=== PATIENT | male | born 1935 | race Caucasian/White ===

== ENCOUNTER 2020-09-15 19:59 | Emergency (ER) | payer MEDICARE, OTHER ==
[~2020-09-15] VITALS: Ht 165.1 cm; Wt 61.2 kg
[2020-09-15 20:24] LABS: LYMPHOCYTES # (AUTO) 1.1 /CMM (0.8-4.8); MEAN CORPUSCULAR HGB CONC 33 g/dl (31.0-36.0); PLATELET COUNT (AUTO) 118 /CMM (150-450)
[2020-09-15 20:27] LABS: BASOPHILS # (AUTO) 0.1 /CMM (0.0-0.2); EOSINOPHILS % (AUTO) 2.3 % (0.0-6.0); HEMATOCRIT 41 % (39-51); HEMOGLOBIN 13.5 g/dL (13.5-17.5); LYMPHOCYTES % (AUTO) 17.5 % (20.0-44.0); MEAN CORPUSCULAR VOLUME 93 fL (80-96); MONOCYTES # (AUTO) 0.4 /CMM (0.1-1.30); MONOCYTES % (AUTO) 7.1 % (2.0-12.0); NEUTROPHILS # (AUTO) 4.5 /CMM (1.8-8.9); NEUTROPHILS % (AUTO) 72.1 % (43.0-81.0); RED BLOOD CELL COUNT(AUTO) 4.42 MIL/uL (4.5-6.0); WHITE BLOOD COUNT (AUTO) 6.2 K/uL (4.3-11.0)
--- NOTE | 2020-09-15 20:27 | NUR ---
KOFI FROM [facility] TO ER BED 6. AAOX3. NOT IN RESP DISTRESS, BREATHING EVEN AND UNLABORED. BROUGHT IN FOR A GROUND LEVEL FALL. PT IS CURRENTLY DENYING ANY PAIN. BODY CHECK DONE, NOTED A SKIN TEAR ON THE PT'S R HAND, NO OTHER NOTED INJURY. PT DOES NOT RECALL IF HE PASSED OUT PRIO NOR AFTER THE FALL. PT ALSO DOES NOT RECALL HITTING HIS HEAD, NO NOTED INJURY. ALL ROM ARE INTACT. MD WAS AT THE BEDSIDE FOR EVAL. ORDERS RECEIVED, NOTED AND CARRIED OUT. IV LINE ALREADY PRESENT ON LFA 20G. BLOOD DRAWN BY PHLEB AT BEDSIDE.
[2020-09-15 20:33] LABS: CALCIUM, SERUM 8.8 mg/dL (8.5-10.1); CARBON DIOXIDE 28 mmol/L (21-32); CHLORIDE 107 mmol/L (98-107); CREATININE 1.7 mg/dL (0.6-1.3); GLUCOSE 118 mg/dL (74-106); POTASSIUM 3.4 mmol/L (3.5-5.1); SODIUM SERUM 145 mmol/L (136-145); UREA NITROGEN, BLOOD 26 mg/dL (7-18)
--- NOTE | 2020-09-15 20:33 | NUR ---
PT TO CT
--- NOTE | 2020-09-15 20:34 | NUR ---
JACEY BERG CALLED, STATED THAT SHE HAS THE POWER OF PHYSICIAN/INTERNIST. ENQIREING ABOUT PROGRESS OF PT.
--- NOTE | 2020-09-15 20:39 | NUR ---
PT BACK FROM RADIOLOGY. PENDING CT REUSLT.
--- NOTE | 2020-09-15 21:39 | NUR ---
REPORT CALLED TO [facility] STAFF ANNETTE. WILL CALL FOR TRANSPORT.
--- NOTE | 2020-09-15 21:47 | NUR ---
[facility] CALLED FOR TRANSPORT ETA 45-60MIN.
--- NOTE | 2020-09-15 23:00 | NUR ---
[facility] TRANSPORT AT BEDSIDE REPORT GIVEN TO EMT.
--- NOTE | 2020-09-15 23:00 | NUR ---
IV removed. Catheter intact and site benign. Pressure and 4x4 applied to site. No bleeding noted.
[2020-09-15 23:11] VITALS: BP 122/68
== END 2020-09-15 23:16 ==
LOC: ER 20:01
DX: R55 Syncope and collapse (principal); R51.9 Headache, unspecified; F03.90 Unspecified dementia, unspecified severity, without behavioral disturbance, psychotic disturbance, mood disturbance, and anxiety; I10 Essential (primary) hypertension; I25.10 Atherosclerotic heart disease of native coronary artery without angina pectoris; M19.90 Unspecified osteoarthritis, unspecified site; W01.0XXA Fall on same level from slipping, tripping and stumbling without subsequent striking against object, initial encounter; Y93.89 Activity, other specified; Y92.89 Other specified places as the place of occurrence of the external cause; Y99.8 Other external cause status
CPT/HCPCS: 36415; 70450-TC; 71045-TC; 72125-TC; 80048-TC; 83880; 84484-TC; 85025-TC

== ENCOUNTER 2021-04-20 11:07 | Emergency (ER) | payer MEDICARE, OTHER ==
[~2021-04-20] VITALS: Ht 175.3 cm; Wt 72.6 kg
--- NOTE | 2021-04-20 11:07 | NUR ---
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 PT IS AAOX3, NOT IN RESPIRATORU DISTRESS, HOOKED TO EXPLOSIVE EXPERT, KEPT RESTED AND COMFORTABLE. WILL CONTINUE TO MONITOR.
--- NOTE | 2021-04-20 11:10 | NUR ---
SEEN AND EXAMINED BY .
--- NOTE | 2021-04-20 11:14 | NUR ---
PT DAUGHTER [phone]
--- NOTE | 2021-04-20 11:26 | NUR ---
BLOOD DRAWN AND SENT TO LAB.
[2021-04-20 11:40] LABS: BASOPHILS # (AUTO) 0.1 K/uL (0.0-0.2); BASOPHILS % (AUTO) 0.9 % (0.0-2.0); EOSINOPHILS % (AUTO) 3.4 % (0.0-6.0); HEMATOCRIT 44 % (39-51); HEMOGLOBIN 14.5 g/dL (13.5-17.5); LYMPHOCYTES # (AUTO) 1.2 K/uL (0.8-4.8); MEAN CORPUSCULAR HGB CONC 33 g/dl (31.0-36.0); MEAN CORPUSCULAR VOLUME 92 fL (80-96); MONOCYTES # (AUTO) 0.5 K/uL (0.1-1.30); MONOCYTES % (AUTO) 7.3 % (2.0-12.0); NEUTROPHILS # (AUTO) 4.2 K/uL (1.8-8.9); NEUTROPHILS % (AUTO) 68.4 % (43.0-81.0); PLATELET COUNT (AUTO) 113 K/uL (150-450); RED BLOOD CELL COUNT(AUTO) 4.85 MIL/uL (4.5-6.0); WHITE BLOOD COUNT (AUTO) 6.2 K/uL (4.3-11.0)
--- NOTE | 2021-04-20 11:43 | NUR ---
LABORATORY TECHNOLOGY TEACHER AT BEDSIDE FOR XRAY.
--- NOTE | 2021-04-20 11:44 | NUR ---
AGRICULTURAL SCIENCES PROFESSOR NAME IS DR. HALL [phone]
[2021-04-20 11:49] LABS: CALCIUM, SERUM 9.3 mg/dL (8.5-10.1); CARBON DIOXIDE 30 mmol/L (21-32); CHLORIDE 108 mmol/L (98-107); CREATININE 1.5 mg/dL (0.6-1.3); GLUCOSE 89 mg/dL (74-106); POTASSIUM 3.9 mmol/L (3.5-5.1); SODIUM SERUM 147 mmol/L (136-145); UREA NITROGEN, BLOOD 23 mg/dL (7-18)
[2021-04-20 11:55] LABS: ALANINE AMINOTRANSFERASE 23 U/L (12-78); ALBUMIN 3.5 g/dL (3.4-5.0); ALKALINE PHOSPHATASE 91 U/L (46-116); ASPARTATE AMINOTRANSFERASE 21 U/L (15-37); BILIRUBIN,DIRECT 0.2 mg/dL (0.0-0.2); BILIRUBIN,TOTAL 0.6 mg/dL (0.2-1.0); TOTAL PROTEIN, SERUM 6.1 g/dL (6.4-8.2)
[2021-04-20] MEDS ORDERED: VALS1TAB2 PO (15:26)
[2021-04-20] MEDS ORDERED: QUET25TA PO ×2 (15:26)
[2021-04-20] MEDS ORDERED: EZET10TA32 PO (15:26)
[2021-04-20] MEDS ORDERED: ASPI-1169 PO (15:26)
[2021-04-20] MEDS ORDERED: FLUT16SP (15:26)
[2021-04-20] MEDS ORDERED: MEMA10TA56 PO (15:26)
[2021-04-20] MEDS ORDERED: SERT100T12 PO (15:26)
[2021-04-20] MEDS ORDERED: ROSU5TAB13 PO (15:26)
[2021-04-20] MEDS ORDERED: DONE10TA44 PO (15:26)
--- NOTE | 2021-04-20 15:40 | NUR ---
ANA ROSA BURDEN FROM [facility] WILL SEND CREW TO HOME APPRAISER THE PT.
[2021-04-20 15:56] VITALS: BP 131/58
--- NOTE | 2021-04-20 15:56 | NUR ---
IV removed. Catheter intact and site benign. Pressure and 4x4 applied to site. No bleeding noted. Patient discharged to home in stable condition. Written and verbal after care instructions given. Patient verbalizes understanding of instruction.
== END 2021-04-20 15:57 | disposition home or self-care (01) ==
LOC: ER 11:18 → MERGE 11:18 → ER 15:57
DX: R07.89 Other chest pain (principal); F03.90 Unspecified dementia, unspecified severity, without behavioral disturbance, psychotic disturbance, mood disturbance, and anxiety; I10 Essential (primary) hypertension; I25.10 Atherosclerotic heart disease of native coronary artery without angina pectoris; Z79.899 Other long term (current) drug therapy; Z79.82 Long term (current) use of aspirin
CPT/HCPCS: 36415; 71045-TC; 80048-TC; 80076-TC; 84484-TC; 85025-TC

== ENCOUNTER 2021-07-01 23:02 | Inpatient (IN) | payer MEDICARE, OTHER ==
[~2021-07-01] VITALS: Ht 172.7 cm; Wt 73.6 kg
[~2021-07-01 23:02] MED LIST: ASPI-1169 PO; DONE10TA44 PO; EZET10TA32 PO; FLUT16SP; MEMA10TA56 PO; QUET25TA PO; ROSU5TAB13 PO; SERT100T12 PO; VALS1TAB2 PO
[2021-07-01] MEDS ORDERED: VANCOMYCIN 1 GM in IV D5W 250 ML IV ONE (23:30)
[2021-07-01] MEDS ORDERED: ACETAMINOPHEN 650 MG/SUPP.RECT RC ONE ×2 (23:30→23:34)
[2021-07-01] MEDS ORDERED: LIDOCAINE 2% JEL UROJET 10 ML MM ONE (23:33)
[2021-07-01] MEDS ORDERED: VANCOMYCIN 1 GM VIAL ONE (23:34)
--- NOTE | 2021-07-01 23:40 | NUR ---
RFA #20G S/L; PATENT AND INTACT. BLOOD COLLECTED AND GIVEN TO LAB
[2021-07-01 23:52] LABS: BASOPHILS % (AUTO) 0.1 % (0.0-2.0); EOSINOPHILS % (AUTO) 0.8 % (0.0-6.0); HEMATOCRIT 44 % (39-51); HEMOGLOBIN 14.2 g/dL (13.5-17.5); LYMPHOCYTES # (AUTO) 0.2 K/uL (0.8-4.8); LYMPHOCYTES % (AUTO) 1.7 % (20.0-44.0); MEAN CORPUSCULAR HGB CONC 32 g/dl (31.0-36.0); MEAN CORPUSCULAR VOLUME 93 fL (80-96); MONOCYTES # (AUTO) 0.6 K/uL (0.1-1.30); MONOCYTES % (AUTO) 4.8 % (2.0-12.0); NEUTROPHILS # (AUTO) 12.2 K/uL (1.8-8.9); NEUTROPHILS % (AUTO) 92.6 % (43.0-81.0); PLATELET COUNT (AUTO) 172 K/uL (150-450); RED BLOOD CELL COUNT(AUTO) 4.77 MIL/uL (4.5-6.0); WHITE BLOOD COUNT (AUTO) 13.2 K/uL (4.3-11.0)
[2021-07-02 00:31] LABS: CALCIUM, SERUM 9.1 mg/dL (8.5-10.1); CARBON DIOXIDE 28 mmol/L (21-32); CHLORIDE 101 mmol/L (98-107); CREATININE 2.3 mg/dL (0.6-1.3); GLUCOSE 111 mg/dL (74-106); POTASSIUM 3.6 mmol/L (3.5-5.1); SODIUM SERUM 138 mmol/L (136-145); UREA NITROGEN, BLOOD 42 mg/dL (7-18)
[2021-07-02 00:40] LABS: ALANINE AMINOTRANSFERASE 21 U/L (12-78); ALBUMIN 3.3 g/dL (3.4-5.0); ALKALINE PHOSPHATASE 78 U/L (46-116); ASPARTATE AMINOTRANSFERASE 14 U/L (15-37); BILIRUBIN,DIRECT 0.4 mg/dL (0.0-0.2); BILIRUBIN,TOTAL 0.9 mg/dL (0.2-1.0); TOTAL PROTEIN, SERUM 6.9 g/dL (6.4-8.2)
[2021-07-02 00:44] LABS: BILIRUBIN,URINE NEGATIVE (NEGATIVE); COLOR,URINE YELLOW (YELLOW); LEUKOCYTE ESTERASE ,URINE NEGATIVE (NEGATIVE); NITRITE, URINE NEGATIVE (NEGATIVE); PH,URINE 5.5 (5.0-8.0); PROTEIN,URINE NEGATIVE (NEGATIVE); UGLUCOSE NEGATIVE (NEGATIVE); UROBILINOGEN,URINE 0.2 EU/dL (0.2)
[2021-07-02] MEDS ORDERED: PIPERACILLIN /TAZOBACTAM 3.375 G in IV D5W 50 ML IV ONE (01:00)
[2021-07-02] MEDS ORDERED: PIPERACILLIN /TAZOBACTAM 3.375 G VIAL IV ONE ×2 (01:14→12:50)
[2021-07-02] MEDS ORDERED: IV NS 0.9% 500 ML BAG IV ONE ×3 (03:00→17:00)
[2021-07-02] MEDS ORDERED: ZOLPIDEM TARTRATE 5 MG TABLET PO PRN (04:00)
[2021-07-02] MEDS ORDERED: MAGNESIUM HYDROXIDE 30 ML UDC PO PRN (04:00)
[2021-07-02] MEDS ORDERED: ONDANSETRON HCL/PF 4 MG/2 ML VIAL IVP PRN (04:00)
[2021-07-02] MEDS ORDERED: Z GUARD REMEDY 4 OZ OINT TP PRN (04:00)
[2021-07-02] MEDS ORDERED: MAG HYDROX/AL HYDROX/SIMETH 30 ML UDC PO PRN (04:00)
[2021-07-02] MEDS: IV 1/2NS 1000 ML 1,000 ML IV PRN ×2 (04:35→19:57)
[2021-07-02] MEDS: ZOSYN IVPB 2.25 G in IV D5W 50ml IV SCH ×2 (07:00→13:00)
--- NOTE | 2021-07-02 07:32 | NUR ---
RECEIVED REPORT FROM JENISE HO FOR [place]. PT IS AAOX1, NOT IN RESPIRATORY DISTRESS, V/S STABLE, KEPT RESTED AND COMFORTABLE. WILL CONTINUE TO MONITOR. AWAITING TRANSFER INFO
[2021-07-02] MEDS ORDERED: PANTOPRAZOLE 40 MG TABLET.DR PO ONE (07:52)
[2021-07-02] MEDS: PANTOPRAZOLE 40 MG TABLET.DR PO SCH (07:52)
--- NOTE | 2021-07-02 11:03 | NUR ---
AQUILINO CRUZ IMAGERY INTELLIGENCE AT BEDSIDE
--- NOTE | 2021-07-02 11:16 | NUR ---
GRIFFIN [phone] DAUGHTER
--- NOTE | 2021-07-02 11:20 | NUR ---
CORPORATE INTERN AT BEDSIDE
[2021-07-02] MEDS ORDERED: IV NS 0.9% 500 ML IV ONE (11:30)
--- NOTE | 2021-07-02 11:50 | NUR ---
US TECH AT PT'S BEDSIDE; NEG FOR DVT
--- NOTE | 2021-07-02 12:32 | NUR ---
PATIENT HAD A BOWEL MOVEMENT. BROWN, MEDIUM AMOUNT, SOFT.
--- NOTE | 2021-07-02 13:13 | NUR ---
UPDATED LAUREANO (SON) ON PT'S STATUS
--- NOTE | 2021-07-02 14:28 | NUR ---
NOTED EPISODE OF DIARRHEA. CLEANED PATIENT. PROVIDED W NATA LINEN.
--- NOTE | 2021-07-02 14:36 | NUR ---
MADE LALA PERSONAL CARE ASSISTANT AWARE OF DIARRHEA EPISODE AND CURRENT BLOOD PRESSURE. VERBALLY ORDERED 500ML NS TO RUN IN 30MIN. CARRIED OUT.
--- NOTE | 2021-07-02 16:48 | NUR ---
AQUILINO CRUZ YOUTH AGENT AT BEDSIDE. RECEIVED VERBAL ORDER OF NS 500ML IVPB TO RUN FOR 30MIN. CARRIED OUT
[2021-07-02] MEDS ORDERED: QUETIAPINE FUMARATE 25 MG TABLET ONE (17:05)
[2021-07-02] MEDS ORDERED: MEMANTINE HCL 5 MG TABLET ONE (17:06)
[2021-07-02] MEDS: MEMANTINE HCL 5 MG TABLET PO SCH (17:12)
[2021-07-02] MEDS: QUETIAPINE FUMARATE 25 MG TABLET PO SCH ×2 (17:12→21:25)
--- NOTE | 2021-07-02 17:15 | NUR ---
ROOM 116
--- NOTE | 2021-07-02 17:28 | NUR ---
ATTEMPTED TO GIVE REPORT, PER CHARGE NURSE, NO NURSE FROM AM SHIFT. NURSE WILL BE ASSIGNED AT ENGINEERING MODEL MAKER.
--- NOTE | 2021-07-02 17:40 | NUR ---
REPORT GIVEN TO BISI BURDEN OF [facility]
--- NOTE | 2021-07-02 18:20 | NUR ---
RN NOTE PT RECEIVED FROM ER. PT STABLE AND ON TELE SR. PT HASN R HAND #18 RUNNING 1/2 NS 75CC. PT HAS RIGHT ANKLE, FOREARM, EAR, AND FOREHEAD SCAB. PICTURES TAKEN. WOUND CARE CONSULT PLACED. PT ON BILATERAL RESTRAINTS DUE TO AGITATION. PT ON BED ALARM AND LOW BED POSITION.
[2021-07-02] MEDS ORDERED: PIPERACILLIN /TAZOBACTAM 2.25 G VIAL IV ONE (19:34)
[2021-07-02 20:00] VITALS: BP 102/53
[2021-07-02] MEDS: ACETAMINOPHEN 325 MG TABLET PO PRN (21:25)
[2021-07-02] MEDS ORDERED: VANCOMYCIN HCL 0.75 GM in IV D5W 250 ML IV SCH (23:00)
[2021-07-02] MEDS ORDERED: VANCOMYCIN 1 GM VIAL ONE (23:48)
[2021-07-03] VITALS: BP_SYST 102; BP_SYST 97; BP_DIAS 50; BP_DIAS 53
--- NOTE | 2021-07-03 00:15 | NUR ---
RN NOTES: DUPLICATE, VANCO 0.75 GRAM GIVEN
--- NOTE | 2021-07-03 02:12 | NUR ---
BIODIESEL PLANT SUPERINTENDENT OPENING NOTES: RECEIVED PATIENT AWAKE IN BED, BED IN LOW POSITION, CALL LIGHT WITHIN REACH, NO COMPLAIN OF PAIN AND DISCOMFORT AT THIS TIME, NO FACIAL GRIMACING WAS OBSERVED. PATIENT ON O2 INHALATION AT 3LPM SATURATING WELL, WITH IV LINE AT RFA#20 WITH ONGOING 1/2NSS @75ML PER HOUR INFUSING WELL, ON BILATERAL SOFT RESTRAINT DUE TO ATTEMPT TO REMOVE IV LINE, PATIENT ON TELE MONITORING SR-62, ASSESSMENT WAS DONE AND SPOKE TO DAUGHTER BALBINA, SKIN ASSESSMENT DONE AND PICTURE TAKEN, INVENTORY OF ITEM DONE AND DOCUMENTED, PATIENT KEPT CLEAN AND DRY, REMIND TO USE THE CALL LIGHTS WHEN NEEDED ASSISTANCE, ALL NEEDS MET, WILL CONTINUE TO MONITOR.
[2021-07-03] MEDS ORDERED: CEFEPIME 1 GM in IV D5W 50 ML IV SCH (04:00)
[2021-07-03] MEDS ORDERED: CEFEPIME 1 GM VIAL ONE (04:28)
[2021-07-03 05:00] VITALS: BP 102/53
--- NOTE | 2021-07-03 06:57 | NUR ---
RN CLOSING NOTES: PATIENT SLEEP IN BED COMFORTABLY,AROUSABLE TO VERBAL STIMULI, BED IN LOW POSITION, CALL LIGHTS WITHIN REACH, NO COMPLAIN OF PAIN AND DISCOMFORT AT THIS TIME, PATIENT KEPT CLEAN AND DRY ALL NEEDS MET ENDORSE TO INCOMING SHIFT
[2021-07-03 06:59] LABS: BASOPHILS % (AUTO) 0.1 % (0.0-2.0); EOSINOPHILS % (AUTO) 1.8 % (0.0-6.0); HEMATOCRIT 40 % (39-51); HEMOGLOBIN 13.3 g/dL (13.5-17.5); LYMPHOCYTES # (AUTO) 0.1 K/uL (0.8-4.8); LYMPHOCYTES % (AUTO) 0.7 % (20.0-44.0); MEAN CORPUSCULAR HGB CONC 33 g/dl (31.0-36.0); MEAN CORPUSCULAR VOLUME 91 fL (80-96); MONOCYTES # (AUTO) 0.5 K/uL (0.1-1.30); MONOCYTES % (AUTO) 2.2 % (2.0-12.0); NEUTROPHILS # (AUTO) 19.7 K/uL (1.8-8.9); NEUTROPHILS % (AUTO) 95.2 % (43.0-81.0); PLATELET COUNT (AUTO) 176 K/uL (150-450); RED BLOOD CELL COUNT(AUTO) 4.43 MIL/uL (4.5-6.0); WHITE BLOOD COUNT (AUTO) 20.7 K/uL (4.3-11.0)
[2021-07-03 07:19] LABS: ALANINE AMINOTRANSFERASE 24 U/L (12-78); ALBUMIN 2.3 g/dL (3.4-5.0); ALKALINE PHOSPHATASE 50 U/L (46-116); ASPARTATE AMINOTRANSFERASE 54 U/L (15-37); BILIRUBIN,TOTAL 0.7 mg/dL (0.2-1.0); CALCIUM, SERUM 7.9 mg/dL (8.5-10.1); CARBON DIOXIDE 23 mmol/L (21-32); CHLORIDE 108 mmol/L (98-107); CREATININE 2.9 mg/dL (0.6-1.3); GLUCOSE 118 mg/dL (74-106); MAGNESIUM 1.7 mg/dL (1.8-2.4); PHOSPHORUS 3.1 mg/dL (2.5-4.9); POTASSIUM 3.3 mmol/L (3.5-5.1); SODIUM SERUM 143 mmol/L (136-145); TOTAL PROTEIN, SERUM 5.5 g/dL (6.4-8.2); UREA NITROGEN, BLOOD 49 mg/dL (7-18)
[2021-07-03 07:34] LABS: CREATINE KINASE, TOTAL 1726 U/L (39-308); THYROID STIMULATING HORMONE 0.654 uIU/mL (0.358-3.74)
[2021-07-03 08:00] VITALS: BP 126/44
[2021-07-03] MEDS ORDERED: POTASSIUM CHLORIDE 20 MEQ TAB.PRT.SR PO ONE (08:30)
[2021-07-03] MEDS ORDERED: Magnesium 1GM/D5W 100ML PREMIX 100 ML IV SCH (08:30)
[2021-07-03] MEDS: ATORVASTATIN 10 MG TABLET PO SCH (08:33)
[2021-07-03] MEDS: ASPIRIN 81 MG TAB.CHEW PO SCH (08:33)
[2021-07-03] MEDS: SERTRALINE HCL 50 MG TABLET PO SCH (08:33)
[2021-07-03] MEDS: DONEPEZIL 5 MG TABLET PO SCH (08:33)
[2021-07-03] MEDS: PANTOPRAZOLE 40 MG TABLET.DR PO SCH (08:34)
[2021-07-03] MEDS: MEMANTINE HCL 5 MG TABLET PO SCH ×2 (08:34→17:03)
[2021-07-03] MEDS: QUETIAPINE FUMARATE 25 MG TABLET PO SCH ×3 (08:34→22:29)
[2021-07-03] MEDS: DAKINS QUARTER STRENGTH (0.125%) 480 ML BOTTLE TOP SCH (08:35)
[2021-07-03] MEDS: FLUTICASONE PROPIONATE 16 GM BOTTLE NS SCH (09:05)
[2021-07-03] MEDS: EZETIMIBE 10 MG TABLET PO SCH (09:26)
[2021-07-03 12:00] VITALS: BP 89/46
[2021-07-03 13:41] LABS: BAND % (MANUAL) 14 % (0.0-5.0); MONOCYTES % (MANUAL) 8 % (0-11.0); NEUTROPHILS % (MANUAL) 78 (42-76)
[2021-07-03 16:00] VITALS: BP 81/42
[2021-07-03 16:58] LABS: LYMPHOCYTES % (MANUAL) 16 % (16-48)
--- NOTE | 2021-07-03 18:00 | NUR ---
RN NOTE SLIGHT FEVER 99.5 - TYLENOL GIVEN
[2021-07-03] MEDS: ACETAMINOPHEN 325 MG TABLET PO PRN (18:15)
--- NOTE | 2021-07-03 19:35 | NUR ---
RN OPENING NOTES: RECEIVED PATIENT IN BED ALERT, AWAKE, ORIENTED X2 WITH CONFUSION AND VERBALLY RESPONSIVE. ON O2 3L/MIN VIA N/C AND PT TOLERATED WELL. IV ACCESS ON RFA#20G INTACT AND PATENT RUNNING 1/2 NS AT 75CC/HR. NO S/S OF INFILTRATIONS. NO FACIAL GRIMACING NOTED. NO ACUTE DISTRESS. BILATERAL SOFT RESTRAINT ON PLACE. BED IN LOW POSITION, PLACE CALL LIGHT WITHIN REACH. SIDE RAILS UP X3, WILL CONTINUE TO MONITOR
[2021-07-03 20:00] VITALS: BP 92/44
[2021-07-04] VITALS: BP 109/61
[2021-07-04] MEDS: IV 1/2NS 1000 ML 1,000 ML IV PRN ×2 (02:44→18:04)
[2021-07-04 04:00] VITALS: BP 102/54
[2021-07-04] MEDS: CEFEPIME 1 GM in IV D5W 50 ML IV SCH (05:31)
[2021-07-04 07:26] LABS: BASOPHILS # (AUTO) 0.1 K/uL (0.0-0.2); BASOPHILS % (AUTO) 0.3 % (0.0-2.0); EOSINOPHILS % (AUTO) 4.1 % (0.0-6.0); HEMATOCRIT 39 % (39-51); HEMOGLOBIN 13.3 g/dL (13.5-17.5); LYMPHOCYTES # (AUTO) 0.3 K/uL (0.8-4.8); LYMPHOCYTES % (AUTO) 1.6 % (20.0-44.0); MEAN CORPUSCULAR HGB CONC 34 g/dl (31.0-36.0); MEAN CORPUSCULAR VOLUME 90 fL (80-96); MONOCYTES # (AUTO) 0.5 K/uL (0.1-1.30); MONOCYTES % (AUTO) 2.4 % (2.0-12.0); NEUTROPHILS # (AUTO) 18.8 K/uL (1.8-8.9); NEUTROPHILS % (AUTO) 91.6 % (43.0-81.0); PLATELET COUNT (AUTO) 181 K/uL (150-450); RED BLOOD CELL COUNT(AUTO) 4.38 MIL/uL (4.5-6.0); WHITE BLOOD COUNT (AUTO) 20.5 K/uL (4.3-11.0)
--- NOTE | 2021-07-04 07:33 | NUR ---
RN OPENING NOTE- PATIENT IN BED ALERT, AWAKE, ORIENTED X2 WITH CONFUSION . INTERACTIVE. ON O2 3L/MIN VIA N/C AND PT TOLERATING WELL. IV ACCESS ON RFA#20G INTACT AND PATENT RUNNING 1/2 NS AT 75CC/. NO ACUTE DISTRESS. BILATERAL SOFT RESTRAINTS ON PLACE. BED IN LOW POSITION, PLACE CALL LIGHT WITHIN REACH. SIDE RAILS UP X3, WILL CONTINUE TO MONITOR
[2021-07-04 07:35] LABS: CALCIUM, SERUM 8.4 mg/dL (8.5-10.1); CHLORIDE 108 mmol/L (98-107); CREATININE 3.1 mg/dL (0.6-1.3); GLUCOSE 122 mg/dL (74-106); MAGNESIUM 2.4 mg/dL (1.8-2.4); PHOSPHORUS 3.2 mg/dL (2.5-4.9); POTASSIUM 3.9 mmol/L (3.5-5.1); SODIUM SERUM 140 mmol/L (136-145); UREA NITROGEN, BLOOD 70 mg/dL (7-18)
[2021-07-04 07:56] LABS: CARBON DIOXIDE 23 mmol/L (21-32)
[2021-07-04 08:00] VITALS: BP 102/53
[2021-07-04] MEDS: PANTOPRAZOLE 40 MG TABLET.DR PO SCH (08:12)
--- NOTE | 2021-07-04 08:58 | NUR ---
WOUND CARE CONSULT: REVIEWED CHART, NURSING DOCUMENTATION AND PHOTOS WHICH INDICATE DRY LESIONS/DISCOLORATIONS TO RT EYEBROW AREA, RT EAR, RT FOREARM AND LOWER LEG, ALL PRESENT ON ADMISSION. PT FOLLOWED BY BIOMATERIALS ENGINEER FOR LOWER LEG ISSUE. RECOMMENDATIONS MADE FOR SKIN PROTECTION. DISCUSSED WITH NURSING STAFF. MD IN AGREEMENT WITH PLAN OF CARE.
[2021-07-04] MEDS: DAKINS QUARTER STRENGTH (0.125%) 480 ML BOTTLE TOP SCH (09:00)
[2021-07-04] MEDS: QUETIAPINE FUMARATE 25 MG TABLET PO SCH ×3 (09:38→21:18)
[2021-07-04] MEDS: SERTRALINE HCL 50 MG TABLET PO SCH (09:38)
[2021-07-04] MEDS: EZETIMIBE 10 MG TABLET PO SCH (09:38)
[2021-07-04] MEDS: FLUTICASONE PROPIONATE 16 GM BOTTLE NS SCH (09:38)
[2021-07-04] MEDS: ATORVASTATIN 10 MG TABLET PO SCH (09:39)
[2021-07-04] MEDS: MEMANTINE HCL 5 MG TABLET PO SCH ×2 (09:39→17:14)
[2021-07-04] MEDS: ASPIRIN 81 MG TAB.CHEW PO SCH (09:39)
[2021-07-04] MEDS: DONEPEZIL 5 MG TABLET PO SCH (09:39)
[2021-07-04] MEDS ORDERED: VANCOMYCIN HCL 0.75 GM in IV D5W 250 ML IV SCH (11:00)
--- NOTE | 2021-07-04 11:00 | NUR ---
RN NOTE- FAMILY PHONED SAYING TX HAD A CELL PHONE. THIS RN LOOKED FOR CELL PHONE IN ROOM. CARBONIZER TESTER PRESENT BUT NO CELL PHONE. FAMILY SAID THAT NIGHT RN ENOCH HAD PHONE BECAUSE SHE PUT FAMILY ON W PT VIA [employer].
[2021-07-04 12:00] VITALS: BP 106/67
[2021-07-04 16:00] VITALS: BP 102/56
[2021-07-04] MEDS: ACETAMINOPHEN 325 MG TABLET PO PRN (16:41)
--- NOTE | 2021-07-04 16:41 | NUR ---
RN NOTE- PT W ELEVATED TEMP. COOLING MEASURES INITIATED EARLIER. T NOW 99.3. TYLENOL 650 MG ADMINISTERED.
--- NOTE | 2021-07-04 18:00 | NUR ---
RN NOTE- TEMP 98.8
--- NOTE | 2021-07-04 18:44 | NUR ---
RN CLOSING NOTE- PT AWAKE, CONFUSED, ALERT ORIENTED TO PERSON PLACE. IVF 1/2 NS AT 75CC/HR. 20G TO RFA. O2 AT 3LPM VIA NC . SATURATION 98%. PO INTAKE FAIR, NEEDS ATTENDED, BED LOCKED, CALL LIGHT IN REACH, SIDE RAILS UP. MONITOR / ASSIST
--- NOTE | 2021-07-04 19:35 | NUR ---
RN OPENING NOTES RECEIVED PATIENT IN BED ALERT, AWAKE, ORIENTED X2 WITH CONFUSION AND VERBALLY RESPONSIVE. ON O2 4L/MIN VIA N/C AND PT TOLERATED WELL. IV ACCESS ON RFA#20G INTACT AND PATENT RUNNING 1/2 NS AT 75CC/HR.NO S/S OF INFILTRATIONS. NO FACIAL GRIMACING NOTED. NO ACUTE DISTRESS. BILATERAL SOFT RESTRAINT ON PLACE.PATIENT ON TELE 72 HR WITH SR. ALL ENVIRONMENTAL SAFETY MEASURES TAKEN. WILL ASSES ALL PATIENTS NEEDED. BED IN LOW POSITION, PLACE CALL LIGHT WITHIN REACH. SIDE RAILS UP X3, WILL CONTINUE TO MONITOR
[2021-07-04 22:00] VITALS: BP 110/77
--- NOTE | 2021-07-04 22:21 | NUR ---
RN NOTE GRIFFIN CALLED TO FOLLOW UP ON PCR RESULTS. I INFORMED HER THAT THE PCR IS STILL PENDING, WE DON'T CURRENTLY HAVE RESULTS. SHE MENTIONED THAT HIS PHONE IS MISSING AND SHE IS NOT ABLE TO SPEAK WITH HIM. GRIFFIN - [phone]
--- NOTE | 2021-07-04 23:17 | NUR ---
RN NOTE WHEEZING PRESENT, STOPPED IV FLUIDS AND CONTACTED . PATIENT SATURATING AT 90% ON 4L O2 VIA NC. DR. REES SAID TO HOLD IV FLUIDS AND THE PATIENT WILL BE RECEIVING A CHEST X RAY IN THE MORNING. HELD THE FLUIDS AND WILL CONTINUE TO MONITOR PATIENT.
[2021-07-05] VITALS: BP 111/88
[2021-07-05 04:00] VITALS: BP 123/48
[2021-07-05] MEDS: CEFEPIME 1 GM in IV D5W 50 ML IV SCH (05:25)
--- NOTE | 2021-07-05 06:43 | NUR ---
RN NOTE CONTACTED RADIOLOGY TO FOLLOW UP ON THE CHEST X RAY THAT WAS PLACED FOR THE PATIENT. THEY CANCELED THE ODER WITHOUT INFORMING ME TO PUT A DIFFER ORDER. THEY CANCELLED THE ORDER DUE TO THE REASON BEING "MD ORDER". DID NOT CALL TO ASK FOR A NEW ORDER. A NEW ORDER WAS PUT. ENDORSED INFORMATION TO ONCOMING AM NURSE.
[2021-07-05 06:45] LABS: BASOPHILS # (AUTO) 0.1 K/uL (0.0-0.2); BASOPHILS % (AUTO) 0.4 % (0.0-2.0); EOSINOPHILS % (AUTO) 3.6 % (0.0-6.0); HEMATOCRIT 37 % (39-51); HEMOGLOBIN 12.4 g/dL (13.5-17.5); LYMPHOCYTES # (AUTO) 0.5 K/uL (0.8-4.8); LYMPHOCYTES % (AUTO) 2.2 % (20.0-44.0); MEAN CORPUSCULAR HGB CONC 34 g/dl (31.0-36.0); MEAN CORPUSCULAR VOLUME 90 fL (80-96); MONOCYTES % (AUTO) 4.7 % (2.0-12.0); NEUTROPHILS # (AUTO) 18.6 K/uL (1.8-8.9); NEUTROPHILS % (AUTO) 89.1 % (43.0-81.0); PLATELET COUNT (AUTO) 160 K/uL (150-450); WHITE BLOOD COUNT (AUTO) 20.9 K/uL (4.3-11.0)
--- NOTE | 2021-07-05 07:10 | NUR ---
RN NOTE CALLED RADIOLOGY TO FOLLOW UP WITH THE CHEST X RAY, HOWEVER NO ONE PICKED UP. ORDER FOR NEW CHEST X RAY WAS PUT AT [phone]
[2021-07-05 07:16] LABS: CALCIUM, SERUM 8.3 mg/dL (8.5-10.1); CARBON DIOXIDE 23 mmol/L (21-32); CHLORIDE 110 mmol/L (98-107); CREATININE 2.3 mg/dL (0.6-1.3); GLUCOSE 110 mg/dL (74-106); MAGNESIUM 2.4 mg/dL (1.8-2.4); PHOSPHORUS 2.7 mg/dL (2.5-4.9); POTASSIUM 3.7 mmol/L (3.5-5.1); SODIUM SERUM 142 mmol/L (136-145); UREA NITROGEN, BLOOD 68 mg/dL (7-18)
[2021-07-05 08:00] VITALS: BP 123/48
--- NOTE | 2021-07-05 08:00 | NUR ---
RN OPENING NOTES RECEIVED PATIENT IN BED ALERT, AWAKE, ORIENTED X2 WITH CONFUSION AND VERBALLY RESPONSIVE. ON O2 4L/MIN VIA N/C AND PT TOLERATED WELL. IV ACCESS ON RFA#20G INTACT AND PATENT . NOTED WITH SEVERE WHEEZING AND CHEST CONGESTION CHEST X RAY DONE ORDERED NO ACUTE DISTRESS. ON TELE 727HR WITH SR. ALL ENVIRONMENTAL SAFETY MEASURES TAKEN. WILL ASSES ALL PATIENTS NEEDED. BED IN LOW POSITION, PLACE CALL LIGHT WITHIN REACH. SIDE RAILS UP X3, WILL CONTINUE TO MONITOR
[2021-07-05] MEDS: QUETIAPINE FUMARATE 25 MG TABLET PO SCH ×3 (08:15→21:15)
[2021-07-05] MEDS: ATORVASTATIN 10 MG TABLET PO SCH (08:15)
[2021-07-05] MEDS: SERTRALINE HCL 50 MG TABLET PO SCH (08:16)
[2021-07-05] MEDS: ASPIRIN 81 MG TAB.CHEW PO SCH (08:16)
[2021-07-05] MEDS: PANTOPRAZOLE 40 MG TABLET.DR PO SCH (08:16)
[2021-07-05] MEDS: DONEPEZIL 5 MG TABLET PO SCH (08:16)
[2021-07-05] MEDS: MEMANTINE HCL 5 MG TABLET PO SCH ×2 (08:16→16:43)
[2021-07-05] MEDS: ARGININE/GLUTAMINE/CALCIUM BMB 1 EACH POWD.PACK PO SCH (08:17)
[2021-07-05] MEDS: FLUTICASONE PROPIONATE 16 GM BOTTLE NS SCH (08:18)
[2021-07-05] MEDS: EZETIMIBE 10 MG TABLET PO SCH (08:28)
[2021-07-05] MEDS: DAKINS QUARTER STRENGTH (0.125%) 480 ML BOTTLE TOP SCH (09:16)
--- NOTE | 2021-07-05 09:30 | NUR ---
SENIOR MOBILE APPLICATION DEVELOPER NOTE MADE BM KEEP CLEAN DRY , CALLED TO DR JOSEPH ABOUT CHEST CONGESTION AND X RAY RESULT, NO NEW ORDER GIVEN AT THIS TIME
--- NOTE | 2021-07-05 11:39 | NUR ---
WINDER HAND NOTE DR JOSEPH AT BEDSIDE NOTIFIED ABOUT EARLIER WITH CHEST CONGESTION AND RESULT CHEST X RAY ALSO NOTIFIED ABOUT RT LEG REDNESS NOTIFIED THAT DUPLEX STUDY DONE ON 22 NO DVT AT THIS TIME ALSO AWARE THAT WBC TODAY 20.[address] TO CALL DAUGHTER PHONE GIVEN STATED THAT WILL CALL
[2021-07-05 12:00] VITALS: BP 119/73
[2021-07-05 12:06] LABS: *SPE ALPHA-1-GLOBULIN 0.4 g/dL (0.0-0.4); *SPE ALPHA-2-GLOBULIN 0.8 g/dL (0.4-1.0); *SPE BETA GLOBULIN 0.6 g/dL (0.7-1.3); *SPE M-SPIKE Not Observed g/dL (Not Observed)
--- NOTE | 2021-07-05 12:30 | NUR ---
cable television access coordinator note mid line inserted [email or web address] as ordered
[2021-07-05] MEDS: MEROPENEM 500 MG in IV NS 0.9% 50 ML IV SCH (12:36)
--- NOTE | 2021-07-05 14:47 | NUR ---
telephone switchboard operator note round made all needs attended keep clean dry
[2021-07-05 16:00] VITALS: BP 107/63
--- NOTE | 2021-07-05 16:16 | NUR ---
manager telemetry note refused to do reposition offered x3 will f\u
--- NOTE | 2021-07-05 18:43 | NUR ---
television equipment operator note fed by nurse , keep clean dry , all needs attended will cont to monitor,
--- NOTE | 2021-07-05 19:33 | NUR ---
RN OPENING NOTE PATIENT RESTING IN BED A/O 1-2 ,CONFUSED. ON TELE MONITOR WITH HR 66 . ON O2 , 4L VIA NC SAT AT 95%. ALL ISOLATION PRECAUTIONS TAKEN. RIGHT LOWER CELLULITIS NOTED, LEG IS WRAPPED IN GAUZE AND IS CLEAN AND DRY. WHEEZING NOTED, HOWEVER PATIENT STATES THAT HE FEELS FINE. PATIENT DOES NOT COMPLAIN OF PAIN OR DISCOMFORT AT THIS TIME. WILL ATTEND TO PATIENT NEEDS THROUGHOUT THE SHIFT.
[2021-07-05 20:00] VITALS: BP 124/68
[2021-07-05] MEDS: VANCOMYCIN 1 GM in IV D5W 250 ML IV SCH (22:04)
--- NOTE | 2021-07-05 22:10 | NUR ---
BLADDER SCAN COMPLETED PER ROXY HARRIS. APPROX 200 URINE VOLUME SEEN.
[2021-07-06] VITALS: BP 112/49
--- NOTE | 2021-07-06 03:50 | NUR ---
RN NOTE ROUNDED ON PATIENT, BED BATH GIVEN, PAMPERS CHANGED, KEPT PATIENT DRY AND CLEAN.PATIENT RESTING IN BED SIDE RAILS UP, BED ALARM ON.
[2021-07-06 04:00] VITALS: BP 115/62
--- NOTE | 2021-07-06 04:20 | NUR ---
FASHION DIRECTOR PARTY PLAN SALES NOTE PATIENT BED ALARM SOUNDED, RUSHED TO [place] PATIENT FOUND ON FLOOR RESPONSIVE AND SPEAKING. HE DENIES PAIN AT THE TIME, VITALS TAKEN. BP 111/59 HR 56 , O2 AT 95% AT THE TIME. CALLED KYM, HEAD CT SCAN WITHOUT CONTRAST ORDERED. WILL CONTINUE TO MONITOR PATIENT AND FOLLOW UP WITH THE CT SCAN.
--- NOTE | 2021-07-06 04:30 | NUR ---
RN NOTE PATIENT IN BED RESTING, AWAKE AND IS RESPONDING TO VERBAL QUESTIONS. SAME LEVEL OF ORIENTATION FROM PREVIOUS ASSESSMENT. WILL CONTINUE TO MONITOR PATIENT.
--- NOTE | 2021-07-06 04:47 | NUR ---
RN NOTE ORDER PUT IN FOR STAT CT OF HEAD WITHOUT CONTRAST PER KYM
--- NOTE | 2021-07-06 04:50 | NUR ---
RN NOTE PATIENT TAKEN TO CT SCAN PER ACLS PROTOCOL , AWAKE AND VERBALLY RESPONSIVE.
--- NOTE | 2021-07-06 05:00 | NUR ---
RN NOTE PATIENT RESTING IN BED, NEURO ASSESSMENT COMPLETED. PATIENT AWAKE AND VERBALLY RESPONSIVE. DENIES PAIN OR DISCOMFORT AT THIS TIME. LEVEL OF ORIENTATION REMAINS THE SAME FROM PREVIOUS ASSESSMENT.
--- NOTE | 2021-07-06 06:00 | NUR ---
RN NOTE PATIENT RESTING IN BED AT THIS TIME, BILATERAL SOFT RESTRAINTS ON. AWAKE AND SPEAKING. PATIENT IS ON TELE W/ HR IN 60'S, ON 4L O2 VIA NASAL CANULA SATURATING AROUND 96%. PATIENTS BED ALARM ON, IN LOW POSITION, AND LOCKED. WILL ENDORSE PLAN OF CARE TO AM NURSE.
[2021-07-06 07:18] LABS: BASOPHILS # (AUTO) 0.1 K/uL (0.0-0.2); BASOPHILS % (AUTO) 0.3 % (0.0-2.0); HEMATOCRIT 40 % (39-51); HEMOGLOBIN 13.1 g/dL (13.5-17.5); LYMPHOCYTES % (AUTO) 4.1 % (20.0-44.0); MEAN CORPUSCULAR HGB CONC 32 g/dl (31.0-36.0); MEAN CORPUSCULAR VOLUME 91 fL (80-96); MONOCYTES # (AUTO) 1.7 K/uL (0.1-1.30); MONOCYTES % (AUTO) 7.4 % (2.0-12.0); NEUTROPHILS # (AUTO) 19.9 K/uL (1.8-8.9); NEUTROPHILS % (AUTO) 84.2 % (43.0-81.0); PLATELET COUNT (AUTO) 160 K/uL (150-450); RED BLOOD CELL COUNT(AUTO) 4.43 MIL/uL (4.5-6.0); WHITE BLOOD COUNT (AUTO) 23.6 K/uL (4.3-11.0)
--- NOTE | 2021-07-06 07:40 | NUR ---
RN OPENING NOTE PATIENT RESTING IN BED A/O 1-2 ,CONFUSED. ON TELE MONITOR WITH HR 66 . ON O2 , 4L VIA NC SAT AT 95%. ALL ISOLATION PRECAUTIONS TAKEN. RIGHT LOWER CELLULITIS NOTED, LEG IS WRAPPED IN GAUZE AND IS CLEAN AND DRY. ALL SAFETY MEASURES IN PLACE, BED IN LOWEST LOCKED POSITION, SR X 3 UP, CALL LIGHT WITHIN REACH. PATIENT DOES NOT COMPLAIN OF PAIN OR DISCOMFORT AT THIS TIME. WILL ATTEND TO PATIENT NEEDS THROUGHOUT THE SHIFT.
[2021-07-06] MEDS: PANTOPRAZOLE 40 MG TABLET.DR PO SCH (07:54)
[2021-07-06 08:00] VITALS: BP 131/79
[2021-07-06 08:16] LABS: CALCIUM, SERUM 8.8 mg/dL (8.5-10.1); CARBON DIOXIDE 21 mmol/L (21-32); CHLORIDE 115 mmol/L (98-107); CREATININE 1.9 mg/dL (0.6-1.3); GLUCOSE 101 mg/dL (74-106); POTASSIUM 3.6 mmol/L (3.5-5.1); SODIUM SERUM 147 mmol/L (136-145); UREA NITROGEN, BLOOD 64 mg/dL (7-18)
--- NOTE | 2021-07-06 08:30 | NUR ---
RN NOTE CONTACTED GRIFFIN TO LET HER KNOW ABOUT THE FALL, SHE IS AWARE AND EXPLAINED THAT HE ALSO HAD A FALL ON SUNDAY BEFORE COMING TO OUR HOSPITAL. SHE KNOWS THAT A CT SCAN WAS DONE AND THE CT SCAN WAS DONE, RESULTS ARE NEGATIVE. SHE ALSO ASKED ABOUT HIS PHONE, SHE SAID SHE WILL FOLLOW UP WITH THE NURSING SPIRAL GEAR GENERATOR ABOUT HIS PHONE.
[2021-07-06] MEDS: EZETIMIBE 10 MG TABLET PO SCH (09:09)
[2021-07-06] MEDS: ATORVASTATIN 10 MG TABLET PO SCH (09:10)
[2021-07-06] MEDS: SERTRALINE HCL 50 MG TABLET PO SCH (09:10)
[2021-07-06] MEDS: ASPIRIN 81 MG TAB.CHEW PO SCH (09:11)
[2021-07-06] MEDS: DONEPEZIL 5 MG TABLET PO SCH (09:11)
[2021-07-06] MEDS: QUETIAPINE FUMARATE 25 MG TABLET PO SCH ×3 (09:11→22:19)
[2021-07-06] MEDS: MEMANTINE HCL 5 MG TABLET PO SCH ×2 (09:12→16:57)
[2021-07-06] MEDS: DAKINS QUARTER STRENGTH (0.125%) 480 ML BOTTLE TOP SCH (09:13)
[2021-07-06] MEDS: FLUTICASONE PROPIONATE 16 GM BOTTLE NS SCH (09:13)
[2021-07-06] MEDS: ARGININE/GLUTAMINE/CALCIUM BMB 1 EACH POWD.PACK PO SCH (09:14)
[2021-07-06 12:00] VITALS: BP 140/75
[2021-07-06] MEDS: DEXAMETHASONE SOD PHOSPHATE 10 MG/ML VIAL IV SCH (12:56)
[2021-07-06] MEDS: MEROPENEM 500 MG in IV NS 0.9% 50 ML IV SCH ×2 (12:57)
[2021-07-06] MEDS: FUROSEMIDE 40 MG/4 ML VIAL IV SCH ×2 (13:56→16:57)
[2021-07-06] MEDS ORDERED: POTASSIUM CHLORIDE 20 MEQ TAB.PRT.SR PO SCH (14:00)
[2021-07-06 14:26] LABS: LYMPHOCYTES % (MANUAL) 2 % (16-48); MONOCYTES % (MANUAL) 11 % (0-11.0); NEUTROPHILS % (MANUAL) 76 (42-76)
[2021-07-06 14:27] LABS: EOSINOPHILS % (MANUAL) 11 % (0-4)
[2021-07-06 16:00] VITALS: BP 135/70
--- NOTE | 2021-07-06 19:11 | NUR ---
RN CLOSING NOTES PT IS RESTING IN BED, A/O X1 CONFUSED. PT ACTS AGGRESSIVE TOWARDS PHYSICAL TOUCH. PT HAS IV ACCESS AT RFA 20G. FLUSHING WELL AND PATENT. PT ON 4L NC SATING AT 91%. ALL SAFETY MEASURES IN PLACE, BED IN LOWEST LOCKED POSITION, SR UP X 3, CALL LIGHT WITHIN REACH. WILL ENDORSE TO CLIENT SERVICES ASSOCIATE NURSE FOR [place].
[2021-07-06 20:00] VITALS: BP 127/64
[2021-07-07] VITALS: BP 91/54
[2021-07-07] MEDS: MEROPENEM 500 MG in IV NS 0.9% 50 ML IV SCH ×3 (00:41→23:20)
[2021-07-07 04:00] VITALS: BP 125/81
--- NOTE | 2021-07-07 06:40 | NUR ---
RN CLOSING NOTE PATIENT IN BED, ALERT, A/O 1-2 ,CONFUSED AND VERBALLY RESPONSIVE. ON CARDIAC MONITORING HR 54 . ON O2 AT 4L VIA NC SAT AT 95%. IV ACCESS ON RFA#20G. INTACT AND PATENT. NO S/S OF INFILTRATIONS. STILL NOTED RIGHT LOWER CELLULITIS COVERED WITH DRY DRESSING. PT STRONGLY REFUSED TO CHANGE IN THE MORNING, STARTED CURSING, YELLING. NO C/O PAIN OR DISCOMFORT. NO ACUTE DISTRESS. ALL SAFETY MEASURES IN PLACE, BED IN LOWEST LOCKED POSITION, SIDE RAILS X 3 UP, PLACE CALL LIGHT WITHIN REACH. DUE MEDS GIVEN ORDER, WILL ENDORSE TO MORNING SHIFT NURSE.
[2021-07-07 06:50] LABS: BASOPHILS % (AUTO) 0.2 % (0.0-2.0); EOSINOPHILS % (AUTO) 0.6 % (0.0-6.0); HEMATOCRIT 43 % (39-51); LYMPHOCYTES # (AUTO) 1.5 K/uL (0.8-4.8); LYMPHOCYTES % (AUTO) 7.4 % (20.0-44.0); MEAN CORPUSCULAR HGB CONC 33 g/dl (31.0-36.0); MEAN CORPUSCULAR VOLUME 90 fL (80-96); MONOCYTES # (AUTO) 1.7 K/uL (0.1-1.30); MONOCYTES % (AUTO) 8.2 % (2.0-12.0); NEUTROPHILS # (AUTO) 17.1 K/uL (1.8-8.9); NEUTROPHILS % (AUTO) 83.6 % (43.0-81.0); PLATELET COUNT (AUTO) 198 K/uL (150-450); RED BLOOD CELL COUNT(AUTO) 4.72 MIL/uL (4.5-6.0); WHITE BLOOD COUNT (AUTO) 20.5 K/uL (4.3-11.0)
[2021-07-07 08:00] VITALS: BP 125/81
[2021-07-07 08:21] LABS: ALANINE AMINOTRANSFERASE 39 U/L (12-78); ALBUMIN 2.2 g/dL (3.4-5.0); ALKALINE PHOSPHATASE 68 U/L (46-116); ASPARTATE AMINOTRANSFERASE 22 U/L (15-37); BILIRUBIN,TOTAL 0.5 mg/dL (0.2-1.0); CALCIUM, SERUM 8.9 mg/dL (8.5-10.1); CARBON DIOXIDE 24 mmol/L (21-32); CHLORIDE 112 mmol/L (98-107); CREATININE 1.8 mg/dL (0.6-1.3); GLUCOSE 115 mg/dL (74-106); MAGNESIUM 2.4 mg/dL (1.8-2.4); PHOSPHORUS 3.2 mg/dL (2.5-4.9); POTASSIUM 3.6 mmol/L (3.5-5.1); SODIUM SERUM 149 mmol/L (136-145); TOTAL PROTEIN, SERUM 5.5 g/dL (6.4-8.2); UREA NITROGEN, BLOOD 63 mg/dL (7-18)
[2021-07-07] MEDS: SERTRALINE HCL 50 MG TABLET PO SCH (08:32)
[2021-07-07] MEDS: ASPIRIN 81 MG TAB.CHEW PO SCH (08:32)
[2021-07-07] MEDS: MEMANTINE HCL 5 MG TABLET PO SCH ×2 (08:32→17:21)
[2021-07-07] MEDS: ATORVASTATIN 10 MG TABLET PO SCH (08:32)
[2021-07-07] MEDS: EZETIMIBE 10 MG TABLET PO SCH (08:32)
[2021-07-07] MEDS: DONEPEZIL 5 MG TABLET PO SCH (08:32)
[2021-07-07] MEDS: PANTOPRAZOLE 40 MG TABLET.DR PO SCH (08:32)
[2021-07-07] MEDS: ARGININE/GLUTAMINE/CALCIUM BMB 1 EACH POWD.PACK PO SCH (08:33)
[2021-07-07] MEDS: QUETIAPINE FUMARATE 25 MG TABLET PO SCH ×3 (08:36→22:08)
[2021-07-07] MEDS: DEXAMETHASONE SOD PHOSPHATE 10 MG/ML VIAL IV SCH (08:36)
[2021-07-07] MEDS: FLUTICASONE PROPIONATE 16 GM BOTTLE NS SCH (08:50)
[2021-07-07] MEDS: DAKINS QUARTER STRENGTH (0.125%) 480 ML BOTTLE TOP SCH (09:00)
[2021-07-07] MEDS: VANCOMYCIN 1 GM in IV D5W 250 ML IV SCH (11:08)
[2021-07-07 12:00] VITALS: BP 139/64
[2021-07-07 16:00] VITALS: BP 105/59
[2021-07-07 17:44] LABS: BAND % (MANUAL) 4 % (0.0-5.0); LYMPHOCYTES % (MANUAL) 7 % (16-48); MONOCYTES % (MANUAL) 7 % (0-11.0); NEUTROPHILS % (MANUAL) 82 (42-76)
--- NOTE | 2021-07-07 19:55 | NUR ---
SUPPLY CHAIN ASSISTANT OPENING NOTE: RECEIVED REPORT. PATIENT NOTED TO BE EXTREMELY AGITATED, COULD BE HEARD YELLING, CURSING FROM DOWN THE [place] ON APPROACH TO ROOM. PATIENT IS WITH NOTED REDNESS TO RLE. PATIENT IS CONFUSED UPON QUESTIONING AND COMBATIVE. TELEMETRY READING SR 70 AT THIS TIME. SPO2 94% ON 4L O2 VIA NC. SAFETY MEASURES IN PLACE. ROOM KEPT NEAR NURSE'S STATION. DECREASED STIMULATION. BILATERAL SOFT WRIST RESTRAINTS IN PLACE. LOW LIGHTING. BED IN LOW/LOCKED POSITION, SIDE RAILS UP X2. HOB ELEVATED TO SEMI-FOWLERS POSITION. CALL LIGHT WITHIN REACH.
[2021-07-07 20:00] VITALS: BP 98/60
--- NOTE | 2021-07-07 20:39 | NUR ---
RN NOTE PT RESTING IN BED, NON AGITATED. NO SOB NOTED, ON O2 VIA NC @4L. V/S STABLE, DUE MEDICATIONS TAKEN. NEEDS ATTENDED. BILATERAL SOFT RESTRAINTS ON, WITH NO SS OF CIRCULATORY COMPLICATIONS NOTED. RFA G20 IN PLACE AND PATENET. WILL ENDORSE TO NEXT SHIFT.
[2021-07-08] VITALS (8 sets, daily range): BP systolic 121–142; BP diastolic 58–83
--- NOTE | 2021-07-08 06:26 | NUR ---
FOUR H AGENT CLOSING NOTE: PATIENT LYING IN BED EYES CLOSED, RR EVEN AND UNLABORED. EASILY AROUSED BY VOICE COMMAND. PATIENT IS COOPERATIVE AND NON-AGITATED AT THIS TIME. ALERT AND ORIENTED TO PERSON. CONFUSED, BUT FOLLOWS INSTRUCTION. VSS AND NAD. SPO2 94% ON 4L O2 VIA NC. TELEMETRY READING SR. BILATERAL SOFT WRIST RESTRAINTS IN PLACE, TRIAL RELEASES THROUGHOUT SHIFT PER RESTRAINT PROTOCOL. PATIENT DENIES PAIN THROUGHOUT. RLE RED AND WARM TO TOUCH. BED IN LOW/LOCKED POSITION. SIDE RAILS UP X2. BED ALARM ON. HOB ELEVATED TO SEMI-FOWLERS POSITION. CALL LIGHT WITHIN REACH.
[2021-07-08] MEDS: PANTOPRAZOLE 40 MG TABLET.DR PO SCH ×2 (06:41→09:38)
[2021-07-08 07:32] LABS: BASOPHILS # (AUTO) 0.1 K/uL (0.0-0.2); BASOPHILS % (AUTO) 0.7 % (0.0-2.0); EOSINOPHILS % (AUTO) 3.9 % (0.0-6.0); HEMATOCRIT 44 % (39-51); HEMOGLOBIN 14.2 g/dL (13.5-17.5); LYMPHOCYTES # (AUTO) 1.9 K/uL (0.8-4.8); LYMPHOCYTES % (AUTO) 9.5 % (20.0-44.0); MEAN CORPUSCULAR HGB CONC 32 g/dl (31.0-36.0); MEAN CORPUSCULAR VOLUME 91 fL (80-96); MONOCYTES # (AUTO) 1.9 K/uL (0.1-1.30); MONOCYTES % (AUTO) 9.6 % (2.0-12.0); NEUTROPHILS # (AUTO) 14.9 K/uL (1.8-8.9); NEUTROPHILS % (AUTO) 76.3 % (43.0-81.0); PLATELET COUNT (AUTO) 247 K/uL (150-450); RED BLOOD CELL COUNT(AUTO) 4.82 MIL/uL (4.5-6.0); WHITE BLOOD COUNT (AUTO) 19.6 K/uL (4.3-11.0)
[2021-07-08 08:58] LABS: CALCIUM, SERUM 8.9 mg/dL (8.5-10.1); CARBON DIOXIDE 27 mmol/L (21-32); CHLORIDE 117 mmol/L (98-107); CREATININE 1.7 mg/dL (0.6-1.3); GLUCOSE 95 mg/dL (74-106); POTASSIUM 3.7 mmol/L (3.5-5.1); SODIUM SERUM 149 mmol/L (136-145); UREA NITROGEN, BLOOD 68 mg/dL (7-18)
[2021-07-08] MEDS: DEXAMETHASONE SOD PHOSPHATE 10 MG/ML VIAL IV SCH (09:38)
[2021-07-08] MEDS: MEMANTINE HCL 5 MG TABLET PO SCH ×2 (09:38→17:55)
[2021-07-08] MEDS: QUETIAPINE FUMARATE 25 MG TABLET PO SCH ×3 (09:38→21:01)
[2021-07-08] MEDS: ASPIRIN 81 MG TAB.CHEW PO SCH (09:38)
[2021-07-08] MEDS: DONEPEZIL 5 MG TABLET PO SCH (09:38)
[2021-07-08] MEDS: EZETIMIBE 10 MG TABLET PO SCH (09:38)
[2021-07-08] MEDS: ATORVASTATIN 10 MG TABLET PO SCH (09:39)
[2021-07-08] MEDS: SERTRALINE HCL 50 MG TABLET PO SCH (09:39)
[2021-07-08 10:47] LABS: BAND % (MANUAL) 4 % (0.0-5.0); EOSINOPHILS % (MANUAL) 5 % (0-4); LYMPHOCYTES % (MANUAL) 9 % (16-48); MONOCYTES % (MANUAL) 15 % (0-11.0); NEUTROPHILS % (MANUAL) 67 (42-76)
[2021-07-08] MEDS: DAKINS QUARTER STRENGTH (0.125%) 480 ML BOTTLE TOP SCH (10:59)
[2021-07-08] MEDS: FLUTICASONE PROPIONATE 16 GM BOTTLE NS SCH (10:59)
[2021-07-08] MEDS: VANCOMYCIN 1 GM in IV D5W 250 ML IV SCH (12:46)
[2021-07-08] MEDS: MEROPENEM 500 MG in IV NS 0.9% 50 ML IV SCH ×2 (14:02→23:44)
[2021-07-08] MEDS: ARGININE/GLUTAMINE/CALCIUM BMB 1 EACH POWD.PACK PO SCH (15:41)
[2021-07-08 16:53] LABS: C-REACTIVE PROTEIN 4.2 mg/dL (0.0-0.9)
--- NOTE | 2021-07-08 19:02 | NUR ---
RN NOTE PT RESTING IN BED. NO SOB NOTED, ON O2 VIA NC @4L. V/S STABLE, DUE MEDICATIONS TAKEN. NEEDS ATTENDED. BILATERAL SOFT RESTRAINTS ON, WITH NO SS OF CIRCULATORY COMPLICATIONS NOTED. MAKSIM MIDLINE IN PLACE AND PATENT. WILL CONTINUE TO MONITOR.
--- NOTE | 2021-07-08 19:10 | NUR ---
RN OPENING NOTES PATIENT RECEIVED IN BED, ALERT, ORIENTED X 1, CONFUSED, RESPIRATORY EVEN AND UNLABORED. ON NASAL CANULA @ 4LPM NO SOB NOTED, NOT IN DISTRESS. PATIENT NOTED WITH IV ACCES ON MAKSIM MIDLINE INTACT AND PATENT, FLUSHED WITH NS. NO S/S OF INFILTRATIONS. NO FACIAL GRIMACING NOTED. ALL SAFETY MEASURE IN PLACE. BED IN LOW POSITION AND LOCKED. SIDE RAILS X3, PLACE CALL LIGHT WITH IN REACH.
[2021-07-08] MEDS ORDERED: REMDESIVIR (CHARGED) 200 MG, *LOADING DOSE 1 EA in IV NS 0.9% 210 ML IV ONE (20:00)
[2021-07-08] MEDS ORDERED: IV 1/2NS 1000 ML 1,000 ML IV ONE (23:30)
[2021-07-09] VITALS: BP 150/88
[2021-07-09 04:00] VITALS: BP 139/72
--- NOTE | 2021-07-09 06:49 | NUR ---
RN CLOSING NOTES PATIENT REMAIN STABLE THROUGH OUT THE SHIFT, RESPIRATORY EVEN AND UNLABORED. ON NASAL CANULA @ 4LPM NO SOB NOTED, NOT IN DISTRESS. PATIENT NOTED WITH IV ACCES ON MAKSIM MIDLINE INTACT AND PATENT, FLUSHED WITH NS. RUNNING WITH 1/2 NS 1LITER @ 100CC/HR. NO S/S OF INFILTRATIONS. NO FACIAL GRIMACING NOTED. ALL DUE MEDDS GIVEN ORDERED. ALL SAFETY MEASURE IN PLACE. BED IN LOW POSITION AND LOCKED. SIDE RAILS X3, PLACE CALL LIGHT WITH IN REACH.
--- NOTE | 2021-07-09 07:30 | NUR ---
RN NOTE PT AWAKE AND ALERT. A&OX1 HAS HX OF DEMENTIA. PT ON NC AT 4LPM TOLERATING WELL WITH 02 SAT OF 96%. BREATHING EVEN AND UNLABORED WITH NO SOB NOTED. IV ACCESS ON MAKSIM MIDLINE. INTACT AND PATENT. PT HAS NSR ON TELE. BED PLACED IN LOWEST POSITION AND WHEELS LOCKED IN PLACE. ALL SAFETY MEASURES NOTED. WILL CONTINUE TO MONITOR.
[2021-07-09 07:34] LABS: ALANINE AMINOTRANSFERASE 36 U/L (12-78); ALBUMIN 2.1 g/dL (3.4-5.0); ALKALINE PHOSPHATASE 63 U/L (46-116); ASPARTATE AMINOTRANSFERASE 20 U/L (15-37); BILIRUBIN,DIRECT 0.2 mg/dL (0.0-0.2); BILIRUBIN,TOTAL 0.3 mg/dL (0.2-1.0); CALCIUM, SERUM 8.6 mg/dL (8.5-10.1); CARBON DIOXIDE 30 mmol/L (21-32); CHLORIDE 118 mmol/L (98-107); CREATININE 1.6 mg/dL (0.6-1.3); GLUCOSE 99 mg/dL (74-106); MAGNESIUM 2.1 mg/dL (1.8-2.4); PHOSPHORUS 3.2 mg/dL (2.5-4.9); POTASSIUM 3.8 mmol/L (3.5-5.1); SODIUM SERUM 152 mmol/L (136-145); TOTAL PROTEIN, SERUM 4.8 g/dL (6.4-8.2); UREA NITROGEN, BLOOD 55 mg/dL (7-18)
[2021-07-09 08:00] VITALS: BP 147/66
[2021-07-09] MEDS: SERTRALINE HCL 50 MG TABLET PO SCH (09:40)
[2021-07-09] MEDS: DONEPEZIL 5 MG TABLET PO SCH (09:40)
[2021-07-09] MEDS: MEMANTINE HCL 5 MG TABLET PO SCH ×2 (09:40→17:04)
[2021-07-09] MEDS: DEXAMETHASONE SOD PHOSPHATE 10 MG/ML VIAL IV SCH (09:40)
[2021-07-09] MEDS: EZETIMIBE 10 MG TABLET PO SCH (09:40)
[2021-07-09] MEDS: ASPIRIN 81 MG TAB.CHEW PO SCH (09:41)
[2021-07-09] MEDS: ARGININE/GLUTAMINE/CALCIUM BMB 1 EACH POWD.PACK PO SCH (09:41)
[2021-07-09] MEDS: ATORVASTATIN 10 MG TABLET PO SCH (09:41)
[2021-07-09] MEDS: QUETIAPINE FUMARATE 25 MG TABLET PO SCH ×3 (09:41→21:32)
[2021-07-09] MEDS: DAKINS QUARTER STRENGTH (0.125%) 480 ML BOTTLE TOP SCH (09:56)
[2021-07-09] MEDS: FLUTICASONE PROPIONATE 16 GM BOTTLE NS SCH (09:56)
[2021-07-09] MEDS: VANCOMYCIN 1 GM in IV D5W 250 ML IV SCH (11:50)
[2021-07-09 12:00] VITALS: BP 122/68
[2021-07-09] MEDS: MEROPENEM 500 MG in IV NS 0.9% 50 ML IV SCH (13:01)
[2021-07-09 14:26] LABS: BASOPHILS # (AUTO) 0.1 K/uL (0.0-0.2); BASOPHILS % (AUTO) 0.7 % (0.0-2.0); EOSINOPHILS % (AUTO) 3.2 % (0.0-6.0); HEMATOCRIT 42 % (39-51); HEMOGLOBIN 13.7 g/dL (13.5-17.5); LYMPHOCYTES # (AUTO) 2.3 K/uL (0.8-4.8); LYMPHOCYTES % (AUTO) 13.6 % (20.0-44.0); MEAN CORPUSCULAR HGB CONC 33 g/dl (31.0-36.0); MEAN CORPUSCULAR VOLUME 91 fL (80-96); MONOCYTES # (AUTO) 1.3 K/uL (0.1-1.30); MONOCYTES % (AUTO) 7.7 % (2.0-12.0); NEUTROPHILS # (AUTO) 12.8 K/uL (1.8-8.9); NEUTROPHILS % (AUTO) 74.8 % (43.0-81.0); PLATELET COUNT (AUTO) 284 K/uL (150-450); RED BLOOD CELL COUNT(AUTO) 4.59 MIL/uL (4.5-6.0); WHITE BLOOD COUNT (AUTO) 17.1 K/uL (4.3-11.0)
[2021-07-09 16:00] VITALS: BP 147/69
[2021-07-09] MEDS: IV D5W 1,000 ML IV SCH (18:14)
--- NOTE | 2021-07-09 18:48 | NUR ---
RN NOTE PT RESTING IN BED. NO SOB NOTED, ON O2 VIA NC @4L. V/S STABLE, DUE MEDICATIONS TAKEN. NEEDS ATTENDED. BILATERAL SOFT RESTRAINTS ON, WITH NO SS OF CIRCULATORY COMPLICATIONS NOTED. MAKSIM MIDLINE IN PLACE AND PATENT. WILL CONTINUE TO MONITOR. ALL SAFETY MEASURES FOLLOWED.
--- NOTE | 2021-07-09 19:15 | NUR ---
RN NOTE RECEIVED PATIENT IN BED, CONFUSED, IN NO S/SX OF ACUTE DISTRESS AT THIS TIME. SATURATION AT 95% ON 4L VIA NC, SR ON THE MONITOR, HR IS 64. NOTED MAKSIM MIDLINE, PATENT AND FLUSHING WELL, NO S/S OF INFECTION, WITH D5W INFUSING AT 75 ML/HR. B SOFT WRIST RESTRAINTS IN PLACE, SKIN AND CIRCULATION CHECKED, NOTED WITHIN NORMAL LIMITS. SAFETY MEASURES IMPLEMENTED. PATIENT BED ALARM IS ON. HEAD OF BED ELEVATED. BED IS LOCKED, IN LOWEST POSITION AND SIDE RAILS UP. CALL LIGHT WITHIN REACH OF THE PATIENT. WILL CONTINUE TO MONITOR AND REASSESS FOR ANY CHANGES.
[2021-07-09] MEDS: REMDESIVIR (CHARGED) 100 MG in IV NS 0.9% 100 ML IV SCH (19:33)
[2021-07-09 20:00] VITALS: BP 117/54
[2021-07-10] VITALS: BP 139/60
[2021-07-10] MEDS: MEROPENEM 500 MG in IV NS 0.9% 50 ML IV SCH ×3 (00:29→23:20)
[2021-07-10 04:00] VITALS: BP 118/56
[2021-07-10] MEDS: IV D5W 1,000 ML IV SCH ×2 (07:05→20:41)
[2021-07-10 08:00] VITALS: BP 138/70
[2021-07-10 08:03] LABS: BASOPHILS # (AUTO) 0.1 K/uL (0.0-0.2); BASOPHILS % (AUTO) 0.8 % (0.0-2.0); EOSINOPHILS % (AUTO) 2.8 % (0.0-6.0); HEMATOCRIT 41 % (39-51); HEMOGLOBIN 13.3 g/dL (13.5-17.5); LYMPHOCYTES # (AUTO) 2.1 K/uL (0.8-4.8); LYMPHOCYTES % (AUTO) 12.3 % (20.0-44.0); MEAN CORPUSCULAR HGB CONC 33 g/dl (31.0-36.0); MEAN CORPUSCULAR VOLUME 91 fL (80-96); MONOCYTES % (AUTO) 6.1 % (2.0-12.0); NEUTROPHILS # (AUTO) 13.2 K/uL (1.8-8.9); PLATELET COUNT (AUTO) 303 K/uL (150-450); RED BLOOD CELL COUNT(AUTO) 4.51 MIL/uL (4.5-6.0); WHITE BLOOD COUNT (AUTO) 16.9 K/uL (4.3-11.0)
[2021-07-10 08:31] LABS: ALANINE AMINOTRANSFERASE 34 U/L (12-78); ALBUMIN 2.1 g/dL (3.4-5.0); ALKALINE PHOSPHATASE 62 U/L (46-116); ASPARTATE AMINOTRANSFERASE 21 U/L (15-37); BILIRUBIN,DIRECT 0.2 mg/dL (0.0-0.2); BILIRUBIN,TOTAL 0.3 mg/dL (0.2-1.0); CALCIUM, SERUM 8.2 mg/dL (8.5-10.1); CARBON DIOXIDE 30 mmol/L (21-32); CHLORIDE 115 mmol/L (98-107); CREATININE 1.4 mg/dL (0.6-1.3); GLUCOSE 97 mg/dL (74-106); POTASSIUM 3.4 mmol/L (3.5-5.1); SODIUM SERUM 148 mmol/L (136-145); TOTAL PROTEIN, SERUM 4.6 g/dL (6.4-8.2); UREA NITROGEN, BLOOD 43 mg/dL (7-18)
[2021-07-10] MEDS: ASPIRIN 81 MG TAB.CHEW PO SCH (08:45)
[2021-07-10] MEDS: MEMANTINE HCL 5 MG TABLET PO SCH ×2 (08:45→16:31)
[2021-07-10] MEDS: ATORVASTATIN 10 MG TABLET PO SCH (08:45)
[2021-07-10] MEDS: DONEPEZIL 5 MG TABLET PO SCH (08:46)
[2021-07-10] MEDS: PANTOPRAZOLE 40 MG TABLET.DR PO SCH (08:46)
[2021-07-10] MEDS: DEXAMETHASONE SOD PHOSPHATE 10 MG/ML VIAL IV SCH (08:46)
[2021-07-10] MEDS: SERTRALINE HCL 50 MG TABLET PO SCH (08:46)
[2021-07-10] MEDS: EZETIMIBE 10 MG TABLET PO SCH (08:46)
[2021-07-10] MEDS: QUETIAPINE FUMARATE 25 MG TABLET PO SCH ×3 (08:46→22:01)
[2021-07-10] MEDS: DAKINS QUARTER STRENGTH (0.125%) 480 ML BOTTLE TOP SCH (08:47)
[2021-07-10] MEDS ORDERED: POTASSIUM CHLORIDE 20 MEQ TAB.PRT.SR PO ONE (10:00)
[2021-07-10] MEDS: ARGININE/GLUTAMINE/CALCIUM BMB 1 EACH POWD.PACK PO SCH (10:19)
[2021-07-10] MEDS: VANCOMYCIN 1 GM in IV D5W 250 ML IV SCH (10:19)
[2021-07-10] MEDS: FLUTICASONE PROPIONATE 16 GM BOTTLE NS SCH (10:21)
[2021-07-10 12:00] VITALS: BP 130/70
[2021-07-10 16:00] VITALS: BP 135/66
[2021-07-10] MEDS: REMDESIVIR (CHARGED) 100 MG in IV NS 0.9% 100 ML IV SCH (19:36)
--- NOTE | 2021-07-10 19:44 | NUR ---
RN OPENING NOTES, RECEIVED PATIENT IN BED, ALERT, ORIENTED X1, WITH CONFUSION, VERBALLY RESPONSIVE. ON ROOM AIR AT THIS MOMENT. ON ROOM AIR AND PT TOLERATED WELL. IV ACCESS ON MAKSIM MIDLINE INTACT AND PATENT WITH D5W INFUSING AT 75 ML/HR. BILATERAL SOFT WRIST RESTRAINTS IN PLACE. NO C/O PAIN OR DISCOMFORT. NO ACUTE DISTRESS. ALL SAFETY MEASURES IN PLACE. BED ALARM IS ON. BED IS LOCKED AND IN LOWEST POSITION. SIDE RAILS UP X3, PLACE CALL LIGHT WITHIN REACH. WILL CONTINUE TO MONITOR.
[2021-07-10 20:00] VITALS: BP 128/70
[2021-07-11] VITALS: BP 132/85
[2021-07-11 04:00] VITALS: BP 154/66
[2021-07-11 06:05] LABS: BASOPHILS # (AUTO) 0.1 K/uL (0.0-0.2); BASOPHILS % (AUTO) 0.5 % (0.0-2.0); EOSINOPHILS % (AUTO) 1.8 % (0.0-6.0); HEMATOCRIT 41 % (39-51); HEMOGLOBIN 13.6 g/dL (13.5-17.5); LYMPHOCYTES # (AUTO) 2.2 K/uL (0.8-4.8); LYMPHOCYTES % (AUTO) 10.6 % (20.0-44.0); MEAN CORPUSCULAR HGB CONC 33 g/dl (31.0-36.0); MEAN CORPUSCULAR VOLUME 91 fL (80-96); MONOCYTES % (AUTO) 4.7 % (2.0-12.0); NEUTROPHILS # (AUTO) 16.9 K/uL (1.8-8.9); NEUTROPHILS % (AUTO) 82.4 % (43.0-81.0); PLATELET COUNT (AUTO) 346 K/uL (150-450); RED BLOOD CELL COUNT(AUTO) 4.54 MIL/uL (4.5-6.0); WHITE BLOOD COUNT (AUTO) 20.5 K/uL (4.3-11.0)
--- NOTE | 2021-07-11 06:37 | NUR ---
RN CLOSING NOTES, PATIENT IN BED, ALERT, ORIENTED X1, WITH CONFUSION, VERBALLY RESPONSIVE. ON 4L VIA N/C, O2 SAT 98%, AND PT TOLERATED WELL. IV ACCESS ON MAKSIM MIDLINE INTACT AND PATENT WITH D5W INFUSING AT 75 ML/HR. BILATERAL SOFT WRIST RESTRAINTS IN PLACE. RELEASED Q 2HOURS FOR CIRCULATIONS. NO C/O PAIN OR DISCOMFORT. NO ACUTE DISTRESS. ALL DUE MEDS GIVEN ORDERED. ALL SAFETY MEASURES IN PLACE. BED ALARM IS ON. BED IS LOCKED AND IN LOWEST POSITION. SIDE RAILS UP X3, PLACE CALL LIGHT WITHIN REACH. WILL ENDORSE TO MORNING SHIFT NURSE.
--- NOTE | 2021-07-11 07:33 | NUR ---
DEBONING TEAM LEADER OPENING NOTES, RECEIVED PATIENT IN BED, ALERT, ORIENTED X2, VERBALLY RESPONSIVE. ON ROOM AIR AT THIS MOMENT. IV ACCESS ON MAKSIM MIDLINE INTACT AND PATENT WITH D5W INFUSING AT 75 ML/HR. BILATERAL SOFT WRIST RESTRAINTS IN PLACE. NO C/O PAIN OR DISCOMFORT. NO ACUTE DISTRESS. ALL SAFETY MEASURES IN PLACE. BED ALARM IS ON. BED IS LOCKED AND IN LOWEST POSITION. SIDE RAILS UP X3, PLACE CALL LIGHT WITHIN REACH.
[2021-07-11 07:40] LABS: ALBUMIN 2.2 g/dL (3.4-5.0); BILIRUBIN,DIRECT 0.2 mg/dL (0.0-0.2); BILIRUBIN,TOTAL 0.4 mg/dL (0.2-1.0); CALCIUM, SERUM 8.9 mg/dL (8.5-10.1); CREATININE 1.3 mg/dL (0.6-1.3); POTASSIUM 3.5 mmol/L (3.5-5.1); TOTAL PROTEIN, SERUM 4.7 g/dL (6.4-8.2)
[2021-07-11 08:00] VITALS: BP 140/59
[2021-07-11] MEDS: DEXAMETHASONE SOD PHOSPHATE 10 MG/ML VIAL IV SCH (08:26)
[2021-07-11] MEDS: PANTOPRAZOLE 40 MG TABLET.DR PO SCH (08:26)
[2021-07-11] MEDS: MEMANTINE HCL 5 MG TABLET PO SCH ×2 (08:26→16:30)
[2021-07-11] MEDS: DONEPEZIL 5 MG TABLET PO SCH (08:27)
[2021-07-11] MEDS: SERTRALINE HCL 50 MG TABLET PO SCH (08:27)
[2021-07-11] MEDS: ATORVASTATIN 10 MG TABLET PO SCH (08:27)
[2021-07-11] MEDS: QUETIAPINE FUMARATE 25 MG TABLET PO SCH ×3 (08:27→22:02)
[2021-07-11] MEDS: ASPIRIN 81 MG TAB.CHEW PO SCH (08:27)
[2021-07-11] MEDS: DAKINS QUARTER STRENGTH (0.125%) 480 ML BOTTLE TOP SCH (08:44)
[2021-07-11] MEDS: FLUTICASONE PROPIONATE 16 GM BOTTLE NS SCH (08:44)
[2021-07-11] MEDS: ARGININE/GLUTAMINE/CALCIUM BMB 1 EACH POWD.PACK PO SCH (09:34)
[2021-07-11] MEDS: EZETIMIBE 10 MG TABLET PO SCH (10:04)
[2021-07-11] MEDS: IV D5W 1,000 ML IV SCH ×2 (10:20→23:53)
[2021-07-11 10:24] LABS: BAND % (MANUAL) 5 % (0.0-5.0); EOSINOPHILS % (MANUAL) 3 % (0-4); LYMPHOCYTES % (MANUAL) 15 % (16-48); MONOCYTES % (MANUAL) 5 % (0-11.0); NEUTROPHILS % (MANUAL) 72 (42-76)
[2021-07-11] MEDS: VANCOMYCIN 1 GM in IV D5W 250 ML IV SCH (11:00)
[2021-07-11 12:00] VITALS: BP 115/53
[2021-07-11] MEDS: MEROPENEM 500 MG in IV NS 0.9% 50 ML IV SCH (12:45)
[2021-07-11 16:00] VITALS: BP 114/57
--- NOTE | 2021-07-11 18:41 | NUR ---
ELL TUTOR CLOSING NOTES, PATIENT IN BED, ALERT, ORIENTED X2, VERBALLY RESPONSIVE. ON ROOM AIR AT THIS MOMENT. IV ACCESS ON MAKSIM MIDLINE INTACT AND PATENT WITH D5W INFUSING AT 75 ML/HR. BILATERAL SOFT WRIST RESTRAINTS IN PLACE. ALL SCHEDULED MEDICATIONS GIVEN. NO C/O PAIN OR DISCOMFORT. NO ACUTE DISTRESS. ALL SAFETY MEASURES IN PLACE. BED ALARM IS ON. BED IS LOCKED AND IN LOWEST POSITION. SIDE RAILS UP X3, PLACE CALL LIGHT WITHIN REACH. WILL ENDORSE TO NIGHT NURSE FOR [place].
[2021-07-11 20:00] VITALS: BP 141/63
--- NOTE | 2021-07-11 20:40 | NUR ---
RN NOTES: PT APPEARED TO BE VERY AGGRESSIVE. SCREAMING AND YELLING. CONTINUOUSLY TRYING TO REMOVE THE IV LINE AND RESTRAINTS. NOTIFIED KYM ORR. ORDER ATIVAN 1 MG IV AT ONE TIME. ORDER NOTED AND CARRIED OUT.
[2021-07-11] MEDS ORDERED: LORAZEPAM INJ 2 MG/ML VIAL IV ONE (21:00)
[2021-07-11] MEDS: REMDESIVIR (CHARGED) 100 MG in IV NS 0.9% 100 ML IV SCH (21:35)
--- NOTE | 2021-07-11 22:04 | NUR ---
RN NOTES: ATIVAN 1MG IV GIVEN PER PRN ORDER ONCE AND PT TOLERATED WELL. WILL CONTINUE TO MONITOR
[2021-07-12] VITALS: BP 125/65
[2021-07-12 04:00] VITALS: BP 123/53
[2021-07-12 06:33] LABS: BASOPHILS # (AUTO) 0.1 K/uL (0.0-0.2); BASOPHILS % (AUTO) 0.5 % (0.0-2.0); EOSINOPHILS % (AUTO) 2.2 % (0.0-6.0); HEMATOCRIT 38 % (39-51); HEMOGLOBIN 12.5 g/dL (13.5-17.5); LYMPHOCYTES # (AUTO) 2.1 K/uL (0.8-4.8); LYMPHOCYTES % (AUTO) 11.6 % (20.0-44.0); MEAN CORPUSCULAR HGB CONC 33 g/dl (31.0-36.0); MEAN CORPUSCULAR VOLUME 89 fL (80-96); MONOCYTES # (AUTO) 1.1 K/uL (0.1-1.30); MONOCYTES % (AUTO) 5.7 % (2.0-12.0); NEUTROPHILS # (AUTO) 14.8 K/uL (1.8-8.9); PLATELET COUNT (AUTO) 323 K/uL (150-450); RED BLOOD CELL COUNT(AUTO) 4.23 MIL/uL (4.5-6.0); WHITE BLOOD COUNT (AUTO) 18.5 K/uL (4.3-11.0)
--- NOTE | 2021-07-12 06:49 | NUR ---
RN CLOSING NOTES, PATIENT IN BED, ALERT, ORIENTED X1, WITH CONFUSION, VERBALLY RESPONSIVE. ON 2L VIA N/C, O2 SAT 92%, AND PT TOLERATED WELL. IV ACCESS ON MAKSIM MIDLINE INTACT AND PATENT WITH D5W INFUSING AT 75 ML/HR. BILATERAL SOFT WRIST RESTRAINTS IN PLACE. RELEASED Q 2HOURS FOR CIRCULATIONS. NO C/O PAIN OR DISCOMFORT. NO ACUTE DISTRESS. PT APPEARED TO BE CALM AT THIS MOMENT. ALL DUE MEDS GIVEN ORDERED. ALL SAFETY MEASURES IN PLACE. BED ALARM IS ON. BED IS LOCKED AND IN LOWEST POSITION. SIDE RAILS UP X3, PLACE CALL LIGHT WITHIN REACH. WILL ENDORSE TO MORNING SHIFT NURSE.
[2021-07-12 07:21] LABS: ALBUMIN 2.1 g/dL (3.4-5.0); BILIRUBIN,DIRECT 0.2 mg/dL (0.0-0.2); BILIRUBIN,TOTAL 0.3 mg/dL (0.2-1.0); CALCIUM, SERUM 8.2 mg/dL (8.5-10.1); CREATININE 1.3 mg/dL (0.6-1.3); POTASSIUM 3.4 mmol/L (3.5-5.1); TOTAL PROTEIN, SERUM 4.3 g/dL (6.4-8.2)
[2021-07-12 08:00] VITALS: BP 153/60
[2021-07-12] MEDS: ARGININE/GLUTAMINE/CALCIUM BMB 1 EACH POWD.PACK PO SCH (09:06)
[2021-07-12] MEDS: SERTRALINE HCL 50 MG TABLET PO SCH (09:07)
[2021-07-12] MEDS: ATORVASTATIN 10 MG TABLET PO SCH (09:07)
[2021-07-12] MEDS: EZETIMIBE 10 MG TABLET PO SCH (09:07)
[2021-07-12] MEDS: MEMANTINE HCL 5 MG TABLET PO SCH ×2 (09:07→17:33)
[2021-07-12] MEDS: DONEPEZIL 5 MG TABLET PO SCH (09:07)
[2021-07-12] MEDS: DEXAMETHASONE SOD PHOSPHATE 10 MG/ML VIAL IV SCH (09:07)
[2021-07-12] MEDS: ASPIRIN 81 MG TAB.CHEW PO SCH (09:07)
[2021-07-12] MEDS: QUETIAPINE FUMARATE 25 MG TABLET PO SCH ×2 (09:07→17:33)
[2021-07-12] MEDS: PANTOPRAZOLE 40 MG TABLET.DR PO SCH (09:09)
[2021-07-12] MEDS: DAKINS QUARTER STRENGTH (0.125%) 480 ML BOTTLE TOP SCH (09:10)
[2021-07-12] MEDS: FLUTICASONE PROPIONATE 16 GM BOTTLE NS SCH (09:11)
[2021-07-12] MEDS ORDERED: METH4TAB17 PO (09:14)
[2021-07-12] MEDS ORDERED: POTASSIUM CHLORIDE 20 MEQ TAB.PRT.SR PO ONE (09:30)
[2021-07-12] MEDS: IV D5W 1,000 ML IV SCH (12:44)
--- NOTE | 2021-07-12 15:16 | NUR ---
RN NOTE CALLED [facility] [phone] SPOKE KEMAL NURSE Todd GAVE REPORT OVER THE PHONE PATIENT WILL PICKED UP AT 1800.
[2021-07-12 15:51] LABS: EOSINOPHILS % (MANUAL) 2 % (0-4); LYMPHOCYTES % (MANUAL) 4 % (16-48); MONOCYTES % (MANUAL) 4 % (0-11.0); NEUTROPHILS % (MANUAL) 90 (42-76)
[2021-07-12] MEDS: REMDESIVIR (CHARGED) 100 MG in IV NS 0.9% 100 ML IV SCH (16:16)
--- NOTE | 2021-07-12 18:47 | NUR ---
RN NOTE PATIENT WAS PICKED UP BY [facility] TO BE TRANSFERRED TO [facility].
== END 2021-07-12 18:45 | DRG 871 ==
LOC: ER 23:07 → TRANSITION 07-02 03:10 → TELE1 07-02 17:03 → MEDSG1 07-11 11:37
PROVIDERS: ADMIT Nurse Practitioner Family; ATTEND Internal Medicine
PROC: 05H533Z Insertion of Infusion Device into Right Subclavian Vein, Percutaneous Approach (ICD-10-PCS; principal; 2021-07-05)
PROC: B546ZZA Ultrasonography of Right Subclavian Vein, Guidance (ICD-10-PCS; 2021-07-05)
PROC: XW033E5 Introduction of Remdesivir Anti-infective into Peripheral Vein, Percutaneous Approach, New Technology Group 5 (ICD-10-PCS; 2021-07-08)
DX: A41.89 Other specified sepsis (principal); N17.0 Acute kidney failure with tubular necrosis; J96.01 Acute respiratory failure with hypoxia; U07.1 COVID-19; L03.115 Cellulitis of right lower limb; E44.1 Mild protein-calorie malnutrition; E87.2 Acidosis; G93.40 Encephalopathy, unspecified; I50.30 Unspecified diastolic (congestive) heart failure; M62.82 Rhabdomyolysis; L97.819 Non-pressure chronic ulcer of other part of right lower leg with unspecified severity; I13.0 Hypertensive heart and chronic kidney disease with heart failure and stage 1 through stage 4 chronic kidney disease, or unspecified chronic kidney disease; N18.9 Chronic kidney disease, unspecified; E88.09 Other disorders of plasma-protein metabolism, not elsewhere classified; F03.90 Unspecified dementia, unspecified severity, without behavioral disturbance, psychotic disturbance, mood disturbance, and anxiety; I25.10 Atherosclerotic heart disease of native coronary artery without angina pectoris; M19.90 Unspecified osteoarthritis, unspecified site; E86.0 Dehydration; Z95.1 Presence of aortocoronary bypass graft; Z95.2 Presence of prosthetic heart valve; F29 Unspecified psychosis not due to a substance or known physiological condition; R00.1 Bradycardia, unspecified; Z79.82 Long term (current) use of aspirin; W19.XXXA Unspecified fall, initial encounter; Y93.9 Activity, unspecified; Y92.009 Unspecified place in unspecified non-institutional (private) residence as the place of occurrence of the external cause
CPT/HCPCS: 36410; 36415; 70450-TC; 71045-TC; 73590-TC; 76770-TC; 80048-TC; 80053-TC; 80076-TC; 80202-TC; 82550-TC; 82553; 82728-TC; 83605-TC; 83615-TC; 83735-TC; 83880; 83970; 84100-TC; 84155; 84165; 84443-TC; 84484-TC; 85025-TC; 85378-TC; 85610-TC; 85730-TC; 86140-TC; 87040-TC; 87081-TC; 93307-TC; 93971-TC; 97116-TC; 97530-TC; A4216; A6253; A6403; C9803; G0378; J0692; J1100; J1940; J2060; J2185; J2405; J2543; J3370; J3475; J3490; J7030; J7040; J7042; J7050; J7060; J7070; U0003